=== PATIENT | female | born 1995 | race Caucasian/White ===

== ENCOUNTER → 2019-05-05 08:27 | Outpatient (BNVA) | payer OTHER, SELFPAY | PROVIDERS: Family Provider Nurse Practitioner Family; Visit Provider Nurse Practitioner Women's Health | DX: Z39.2 Encounter for routine postpartum follow-up (principal); Z30.430 Encounter for insertion of intrauterine contraceptive device; O99.02 Anemia complicating childbirth | CPT/HCPCS: 81025; 85027 ==

== ENCOUNTER 2019-06-03 10:24 | Outpatient (CLI) | payer OTHER, SELFPAY ==
--- NOTE | 2019-06-03 | XR_ITS ---
WS: [id number] PROCEDURE: XR chest 2V* [id number] CLINICAL INFORMATION: RT ANTERIOR LOWER RIB PAIN, DECREASED LUNG SOUNDS ON RIGHT COMPARISON: None. FINDINGS: Heart: Normal cardiac silhouette. Lungs: Lungs are clear. No consolidation or pleural fluid. No acute pulmonary infiltrates. Bones: Mild thoracic curve convex left. XR/XR chest 2V* [id number] IMPRESSION: 1. Lungs are well aerated. No acute pulmonary infiltrates. 2. Mild thoracic curve convex left.
== END 2019-06-03 10:25 | disposition home or self-care (01) ==
LOC: RADOUTREAD 10:49
PROVIDERS: Family Provider Nurse Practitioner Family; Visit Provider Nurse Practitioner
DX: Z76.89 Persons encountering health services in other specified circumstances (principal)

== ENCOUNTER → 2019-07-20 13:13 | Outpatient (BNVA) | payer OTHER, SELFPAY | PROVIDERS: Family Provider Nurse Practitioner Family; Visit Provider Obstetrics & Gynecology Female Pelvic Medicine and Reconstructive Surgery | DX: R10.2 Pelvic and perineal pain (principal); Z30.431 Encounter for routine checking of intrauterine contraceptive device; N85.4 Malposition of uterus; N83.201 Unspecified ovarian cyst, right side | CPT/HCPCS: 76830; 84315 ==

== ENCOUNTER → 2020-04-24 14:09 | Outpatient (BNVA) | payer OTHER, SELFPAY | PROVIDERS: Family Provider Nurse Practitioner Family; Visit Provider Obstetrics & Gynecology | DX: Z12.4 Encounter for screening for malignant neoplasm of cervix (principal); Z11.3 Encounter for screening for infections with a predominantly sexual mode of transmission; F32.9 Major depressive disorder, single episode, unspecified | CPT/HCPCS: 86592; 86803; 87340; 87491; 87591; 87806; 88175 ==

== ENCOUNTER → 2021-03-01 11:43 | Outpatient (BNVA) | payer MEDICAID, SELFPAY | PROVIDERS: Family Provider Nurse Practitioner Family; Visit Provider Nurse Practitioner Women's Health | DX: N89.8 Other specified noninflammatory disorders of vagina (principal) | CPT/HCPCS: 87491; 87591; 87661 ==

== ENCOUNTER → 2021-05-07 16:54 | Outpatient (BNVA) | payer OTHER, SELFPAY | PROVIDERS: Family Provider Nurse Practitioner Family; Visit Provider Nurse Practitioner Family | DX: Z20.822 Contact with and (suspected) exposure to COVID-19 (principal) | CPT/HCPCS: 87635 ==

== ENCOUNTER → 2022-05-31 10:05 | Outpatient (BNVA) | payer BC, SELFPAY | PROVIDERS: Family Provider Nurse Practitioner Family; Visit Provider Nurse Practitioner Women's Health | DX: N91.5 Oligomenorrhea, unspecified (principal); Z01.419 Encounter for gynecological examination (general) (routine) without abnormal findings | CPT/HCPCS: 84146; 84443 ==

== ENCOUNTER 2022-07-04 14:12 | Outpatient (CLI) | payer BC, MEDICAID, SELFPAY ==
--- NOTE | 2022-07-04 14:59 | XRR_ITS ---
PROCEDURE INFORMATION: Exam: XR Right Knee Exam date and time: 07/04/2022 3:00 PM Age: 26 years old Clinical indication: Injury or trauma; Other: Playing vb; Swelling (edema); Right; Injury details: History--rt knee pain, PT injured playing volleyball 3 days ago; Additional info: Pain in right knee TECHNIQUE: Imaging protocol: Radiologic exam of the right knee. Views: 3 views. COMPARISON: No relevant prior studies available. FINDINGS: Bones/joints: Osseous structures are intact. Negative for fracture. Joint spaces are preserved. Soft tissues: Normal. XR/XR knee RT 3V* [id number] IMPRESSION: No acute findings.
== END 2022-07-04 14:13 | disposition home or self-care (01) ==
LOC: RAD 14:18
PROVIDERS: PCP Family Medicine; Visit Provider Family Medicine
DX: M25.561 Pain in right knee (principal)
CPT/HCPCS: 73562

== ENCOUNTER 2022-10-07 08:29 | Outpatient (CLI) | payer BC, MEDICAID, SELFPAY ==
--- NOTE | 2022-10-07 08:45 | MR_ITS ---
WS: [id number] MRI RIGHT KNEE HISTORY: pain, injury. COMPARISON: Knee radiograph 07/04/2022 Anterior cruciate ligament: Abnormal signal throughout the ACL. Abnormal course of the ACL with focal tear involving the mid ligament. ACL is more horizontal than typically noted. Complete tear is likel y. Posterior cruciate ligament: Intact. Medial collateral ligament: Intact. Posterior lateral corner structures: Intact. Medial menisci: Intact. Normal signal, size and shape. Lateral meniscus: Intact. Normal signal, size and shape. Extensor mechanism: Distal quadriceps tendon and patellar tendons are intact. Fluid and soft tissue: No significant joint effusion. There is a small amount of subcutaneous edema s urrounding the knee but predominantly anterior. Small amount of fluid in the infrapatellar fat pad. N o Deleon's cyst. Osseous and articular structures: Patellofemoral compartment: Normal. Medial compartment: No significant narrowing of the joint spaces. Very mild superficial fraying along the surface of the cartilage. Lateral compartment: Normal. MR/MR knee RT wo con* [id number] IMPRESSION: 1. Complete tear ACL. 2. No meniscal injury or tear is identified. 3. No joint effusion. 4. Mild soft tissue edema. 5. No marrow edema.
== END 2022-10-07 08:30 | disposition home or self-care (01) ==
PROVIDERS: PCP Family Medicine; Visit Provider Orthopaedic Surgery
DX: S83.511A Sprain of anterior cruciate ligament of right knee, initial encounter (principal); X58.XXXA Exposure to other specified factors, initial encounter; R60.0 Localized edema
CPT/HCPCS: 73721

== ENCOUNTER → 2022-10-09 10:45 | Outpatient (BNVA) | payer BC, MEDICAID, SELFPAY | PROVIDERS: PCP Family Medicine; Visit Provider Family Medicine | DX: Z76.89 Persons encountering health services in other specified circumstances (principal); Z71.3 Dietary counseling and surveillance | CPT/HCPCS: 80053; 80061; 84439; 84443; 85025 ==

== ENCOUNTER → 2022-11-15 10:06 | Outpatient (BNVA) | payer BC, MEDICAID, SELFPAY | PROVIDERS: PCP Family Medicine; Visit Provider Clinical Nurse Specialist Adult Health | DX: Z01.818 Encounter for other preprocedural examination (principal) | CPT/HCPCS: 80048; 81000; 81003; 81025; 85025 ==

== ENCOUNTER 2022-11-22 06:27 | Day surgery (SDC) | payer BC, MEDICAID, SELFPAY ==
[2022-11-21 08:16] VITALS: BMI 40.8
[2022-11-22] VITALS (13 sets, daily range): BP systolic 102–132; BP diastolic 67–96; PULSE 78–109; RESP 16–18; TEMP 36.2–36.3; O2SAT 93–99
--- NOTE | 2022-11-22 | XR_ITS ---
WS: [id number] Right knee, C-arm fluoroscopy views, 11/22/2022 Clinical Data: Right knee arthroscopy Comparison: Right knee, 07/04/2022 Findings: Dr. Ramos performed an ACL repair on the right knee. XR/XR knee RT 1-2V [id number] Impression: ACL repair on the right knee
--- NOTE | 2022-11-22 07:04 | P.HPUD_ITS ---
Surgery/Procedure H&P Update DATE OF PROCEDURE: November 22, 2022 DATE H&P PERFORMED: 11/07/22 CHANGES TO PREVIOUS DOCUMENTATION: None. No change in HPI from last office visit on 11/07/2022. Patient at this point in time MRI has been reviewed she does have a complete ACL tear with no meniscal pathology appreciated. We detailed the ins and outs of the procedure with patient as well as her parents are at bedside. She understands the risk benefits complication alternatives with surgery and through shared decision- making elects to proceed with surgical intervention of a right knee diagnostic and surgical arthroscopy with arthroscopic assisted ACL reconstruction with quadricep tendon autograft. Patient understands agrees with current plan. All questions answered. PREOP DIAGNOSIS: Right knee ACL tear PRIMARY INDICATION FOR PROCEDURE: Right knee ACL tear PLANNED PROCEDURE: Operation Date: 11/22/22 08:10 Proposed Procedures p Right knee diagnostic and surgical arthroscopy with anterior cruciate ligament reconstruction with quadriceps tendon autograft [id number],S83.519A,M25.569?(Right) - Sohail Ramos, DO s ACL Repair Anterior Cruciate Ligament Reconstruction(Right) - Sohail Ramos, DO
[2022-11-22] MEDS: sodium chloride 0.9% 1,000 ML 30 ML IV (07:21)
[2022-11-22] MEDS: acetaminophen 1,000 MG/100 ML PIGGYBACK 400 MG IV (07:22)
[2022-11-22 07:34] LABS: OR HCG Qualitative Urine Negative (Negative)
[2022-11-22] MEDS: ketorolac 30 mg/mL INJ IVP (07:36)
--- NOTE | 2022-11-22 08:44 | P.ANESASSM_ITS ---
Pre-Anesthetic Assessment Height/Weight: Height 1.63 m Weight 107.955 kg Temp Pulse Resp BP Pulse Ox O2 Del Method 97.3 F L 78 18 119/73 97 Room Air 11/22/22 07:08 11/22/22 07:08 11/22/22 07:08 11/22/22 07:08 11/22/22 07:08 11/22/22 07:05 Preop Diagnosis: Right knee ACL tear Operation Date: 11/22/22 08:10 Proposed Procedures p Right knee diagnostic and surgical arthroscopy with anterior cruciate ligament reconstruction with quadriceps tendon autograft [id number],S83.519A,M25.569?(Right) - Sohail Ramos DO s ACL Repair Anterior Cruciate Ligament Reconstruction(Right) - Sohail Ramos DO Last intake: Intake Last Liquid Date 11/21/22 Last Liquid Time 23:30 Last Solid Date 11/21/22 Last Solid Time 20:30 Social No alcohol and No tobacco Exam Normal Cardiopulmonary Exam Airway Submandibular: within normal limits Cervical ROM: within normal limits Mallampati: Class II Neuropsych Depression Anesthetic Plan ASA status: 2 Anesthesia: General and Regional (specify below) (Adductor Canal Block ) Medications/Allergies Home Medications Medication Instructions Recorded Confirmed Last Taken Type escitalopram oxalate 10 mg tablet 10 mg PO DAILY 10/09/22 11/21/22 11/22/22 05:45 History (Lexapro) Allergies Allergy/AdvReac Type Severity Reaction Status Date / Time No Known Allergies Allergy Verified 11/15/22 09:40 Current Medications Generic Name Dose Route Start Last Admin Trade Name Freq PRN Reason Stop Dose Admin Sodium Chloride 1,000 mls @ 30 mls/hr 11/22/22 06:45 11/22/22 07:21 Sodium Chloride 0.9% IV 11/23/22 06:44 30 mls/hr .Q24H MARILIA Administration PFSH Anesthesia Medical History Morbid obesity No pertinent past medical history Denies diabetes, asthma, hypertension, seizures, DVT/PE PCP: None Surgical History H/O section X 3 1--[id number]---zjc transverse delivery performed for arrest of dilation at [address] Dominguez at [facility] [place]. 2--11/20/2016-repeat low transverse delivery by Dr. Obando 3--03/23/2019, repeat low transverse delivery by Dr. Obando and Alberto at [facility] [place] double layer closure History of appendectomy (~11/21/13) Laparoscopic procedure performed by Dr. Lane at [facility] in [place], [place] History of tonsillectomy At age 5 Family History Grandmother Diabetes Maternal and paternal Mother Thyroid condition Denies family history of Colon cancer Ovarian cancer Clotting disorder Heart disease Hyperlipidemia Chronic kidney disease (CKD) Breast cancer Anesthesia complication Bleeding disorder Cancer Hypertension Uterine cancer Stroke Social History Smoking and tobacco status: never smoked Second hand smoke exposure: No Smoking risk assessment/counseling performed?: No Alcohol intake: never Desire information about alcohol rehabilitation?: No Counseling given: No Substance/Drug Use: never Desire information about substance/drug rehabilitation?: No Counseling given: No Adopted: No Caregiver/support person: No Lives independently: Yes Household members: spouse Housing: House Marital status: Life Partner Number of children: 3 service: No Current occupational status: employed Current occupational exposures/hazards: No Pets and animals: No Sexually active: No Do you think of yourself as: Straight/Heterosexual Current gender identity: Female Female Reproductive History Date of last menstrual period: 10/21/22 Spontaneous abortions: No Data Anesthesia Cardiac Studies: No Data to Display
[2022-11-22] MEDS: ceFAZolin 2,000 MG in sodium chloride 0.9% (plus) 50 ML 100 MG IV (08:57)
--- NOTE | 2022-11-22 09:43 | SUR.OPER ---
family updated of surgical status. hd
--- NOTE | 2022-11-22 11:33 | SUR.OPER ---
family updated of surgical status. hd
[2022-11-22] MEDS: lidocaine-epi 2% 20 mL INJ INJECTION (11:44)
[2022-11-22] MEDS: fentaNYL 50 mcg/mL INJ 2mL IVP ×2 (12:27→12:30)
--- NOTE | 2022-11-22 12:33 | PM.OP2 ---
Brief Operative Note Date of procedure: 11/22/22 Pre-op diagnosis: Right knee complete ACL tear Post-op diagnosis: same Procedure Done: 1. Right knee diagnostic and surgical arthroscopy with limited synovectomy 2. Right knee diagnostic and surgical arthroscopy with arthroscopic assisted anterior cruciate ligament reconstruction 3. Right knee quadricep tendon autograft Surgeon: Sohail Ramos Estimated blood loss (mL): 20 Complications: None Post-op Plan: Patient taken to PACU in stable condition recovering well. Patient will receive appropriate discharge instructions as well as pain medication and DVT prophylaxis. She will be allowed partial weightbearing 30 to 50% for the first 2 weeks. Unlocked with full knee range of motion as tolerated we will get her started up in therapy next week. Patient understands agrees with current plan. Questions answered. Condition: stable Disposition: same day Coding Level of Care Code Acute Code for George Maldonado
--- NOTE | 2022-11-22 12:35 | PM.PACU ---
PACU note Narrative: Patient taken to PACU in stable condition recovering well pain controlled. Brace on and in place locked in full extension at this time. She is able to wiggle her toes plantarflex and dorsiflex ankle sensations intact light touch distally. DP pulse PT pulse 2+. Foot warm well-perfused brisk capillary refill less than 2 seconds compartments are soft compressible. Exam: awake Disposition: discharged
--- NOTE | 2022-11-22 12:36 | P.OP_ITS ---
Operative Report Date of procedure: November 22, 2022 Pre-op diagnosis: Preop Diagnosis Right knee ACL tear Procedure: Post-op diagnosis: Same Procedure done: Procedure Done: 1. Right knee diagnostic and surgical arthroscopy with limited synovectomy 2. Right knee diagnostic and surgical arthroscopy with arthroscopic assisted anterior cruciate ligament reconstruction 3. Right knee quadricep tendon autograft Implants: Arthrex quad tendon autograft set with internal brace 4.75 swivel lock for internal brace Surgeon: Sohail Ramos Estimated blood loss (mL): 20 Tourniquet time 110min IV fluids: See anesthesia record Complications: None Findings: See operative report narrative Condition: stable Disposition: same day Brief History: Patient is a pleasant 27-year-old female who is been seen and worked up in the outpatient setting after sustaining a injury to right knee.? Patient had MRI findings consistent with a right complete ACL tear. Given her young age and her continual feelings of instability we talked about her treatment options and at this point in time through shared decision making she elects to proceed with right knee diagnostic and surgical arthroscopy with arthroscopic assisted ACL reconstruction utilizing a quad tendon autograft.? We reviewed the MRI images.? Detailed out the ins and outs of the procedure.? They understand the risk benefits complications alternatives of treatment options and agreed to proceed with surgery.? The risks include but are not limited to make it better, make it worse, blood clot, infection, arthrofibrosis and stiffness of the knee, deep creased function of the knee, rerupture, early arthritis and with these understandings patient agree to proceed with surgical intervention.? All questions answered.? Consent was obtained in the office. Procedure: Patient was seen evaluated in the preoperative holding area.? The consent was reviewed with the patient as well as parents.? The correct extremity was then marked.? Patient was seen evaluate by the anesthesia and preoperative team.? Once cleared by anesthesia, patient was then taken to the operative suite patient was then placed onto the OR table and underwent anesthesia per the anesthesia department.? All bony prominences were well-padded patient was appropriately secured to the bed.? The left lower extremity was then secured to an armboard.? The bottom of the table was then dropped.? Patient had a nonsterile tourniquet applied to the right lower extremity.? A arthroscopic post was then placed to the lateral aspect of the right knee.? Once completely secured to the bed patient's right knee was then examined under anesthesia.? Patient was found to have a positive Ray's as well as a positive pivot shift.? This point time the right knee was then prepped and draped in standard orthopedic fashion.? Final timeout performed.? Patient received appropriate preoperative antibiotics. Esmarch was used to exsanguinate the right lower extremity.? Tourniquet was insufflated to 250 mmHg.? Initially started with Standard 2 incision vertical arthroscopy portals were made.? Initially starting laterally introduced the trocar and perform a diagnostic and surgical arthroscopy visualizing the suprapatellar pouch which was free of loose bodies.? We evacuated a mild hemarthrosis.? We then visualized the patellofemoral joint which was pristine.? Moved into the medial lateral gutters which were pristine with no evidence of loose bodies.? We then evaluated the medial compartment which was pristine with no chondral injury or injury to the meniscus.? I utilized a spinal needle outside in technique to establish my medial portal.? This was then established as well as shaver used to complete a limited synovectomy to allow for easy graft passage and shuttling a suture.? This was performed of the medial infrapatellar as well as lateral compartments.? Next I utilized a probe to evaluate the medial compartment the root of the medial meniscus was intact.? No meniscal tear found on the medial compartment was pristine. Moved into the intercondylar notch and significant rupture of the ACL was noted.? I introduced the arthroscopic shaver to debride the ACL back to the footprint of the femur as well as of the tibia.? This point time moved into the lateral compartment to evaluate the lateral meniscus. Patient's articular cartilage laterally was pristine with no defect as well as her meniscus had no evidence of meniscal tear with a stable meniscal root. All instruments were withdrawn I finished my diagnostic and surgical arthroscopy and confirmed ACL rupture and elected to proceed with quad tendon harvest. I started with the quad tendon autograft.? A standard longitudinal incision was made directly over the quad tendon.? Sharp scalpel excision through skin and subcutaneous tissue.? I utilized a scalpel to mobilize fat off of the quad tendon and had direct visualization at the distal extent of the quad tendon with plan for the beginning of my harvest.? Plan was for all soft tissue with no bony plug.? I opened up the Arthrex quad pro quadriceps tendon graft harvest.? I plan to utilize a partial thickness quad harvest with care to not violate the joint capsule.? At this point time I then made a small tapered and incision distally into the quad tendon to create my starting point.? At this point I then used an Arthrex fiber loop suture to tack the distal end of my graft.? This was then shuttled through the quad pro graft harvest system and I then subsequently harvested given the patient's shorter stature harvested a 62 mm overall graft length.? This was harvested successfully with partial thickness.? The wound bed was then thoroughly irrigated and the edges were then reapproximated with interrupted 0 Vicryl suture.? The subcutaneous tissue was closed with 2-0 Vicryl suture and the skin was closed with running Monocryl suture.? Next the graft was taken to the back table measured a 62 mm graft overall length.? I then utilized the Arthrex quadriceps autograft kit was utilized to graft lengths with a tight rope suspensory technique and the femur with plan to place an internal brace as well.? At this point I prepared my graft for both the femur and tibial ends with a graft plug length of 20 mm on the femur and 20 mm on the tibia.? The graft size was then measured to be at 9 mm for both the tibia and the femur. Once the graft was completely prepped in the internal brace was then placed the graft then was placed under appropriate tension on the back table and roughly 20 N of force the graft was wrapped in a damp lap and we proceeded with our arthroscopy. At this point I moved into preparation for femoral tunnels.? I then introduced arthroscopic shaver to debride the femoral origin of the ACL I utilized electrocautery to maintain access in the retrocruciate space.? This was free of loose bodies.? I then performed a notchplasty with a bur just to identify appropriate landmarks and easier shuttle passing.? This would also provide excellent stimulation and healing for the ACL reconstruction.? This point time it utilize a thermal wand to cynthia my planned anatomic femoral tunnel. At this point time introduced the femoral tunnel guide which was set to appropriate angle and then subsequently made a small incision tamped our guide directly down to bone laterally and then the drill was then inserted into the intercondylar notch at my planned femoral tunnel spot.? I then utilized the reverse reamer drill bit to reverse ream a 9 mm tunnel with roughly 30 mm to allow for back tensioning if needed later.? This completed my femoral tunnel.? The femoral tunnel was then evacuated of its bony debris utilizing arthroscopic shaver.? I then introduced a FiberWire as my shuttling stitch for the femur and this was clamped utilizing a hemostat.? Next I then introduced my tibial tunnel guide which was set to appropriate length this was centered directly over the anatomic tibial footprint.? Once I like my position I then placed my guide on the skin plan my incision made a small incision with plan for later IV placement and the tibia.? Drill sleeve was then tapped into place the drill was then advanced into the anatomic footprint of the tibia the flip cutter was then placed at 9mm for the tunnel with and a 30 mm drill tunnel was then placed to allow for appropriate back tensioning as needed.? Once this was done I then introduced the arthroscopic shaver to debride all bony debris throughout the tibial tunnel to prevent from any chances of cyclops lesions.? Once this was done I then shuttled my fiber wire suture through the tibial tunnel and pulled this out of the medial arthroscopic portal.? I then grabbed the femoral shuttling suture and pulled this out the anterior medial portal as well.? This point time we are ready to pass our graft.? I then appropriately marked our drill tunnel length on her suture and then shut tled our quad autograft femoral side utilizing my femoral shuttling suture the button was then flipped and I utilized C arm to confirm this was directly onto bone.? I did make a small incision distally to directly visualize this was on bone.? Patient did have some bit of periosteum but this did not have any IT band or soft tissue keeping this from directly being on the bone.? Was directly visualized through my incision.? Once this was flipped and appropriately tensioned with the knee in flexion I then utilized the white tensioning sutures to bring the 20 mm graft plug and appropriate position once this was appropriately secured this was then left alone and I subsequently moved to shuttling the tibia shuttling sutures for my tibial portion of my graft.? This was then shuttled through and then pulled into the tibial tunnel under direct arthroscopic visualization.? Next I then placed the knee into full extension I then inserted the tibial button which the suture was then placed into as well as shuttling my internal brace suture through.? First I appropriately tensioned my tibial graft plug secured this down to bone and cycled multiple times of tension.? Once preliminary fixed I then range the knee over 30 times performed a Ray and anterior drawer to get creep out of the graft system.? Once this was done I then went back up to the femur with the knee in flexion repeat tensioned so this bottomed out as well as place the knee back into extension and repeat tension to my tibial button and graft until this reached excellent tension.? At this point time I then took my internal brace sutures which were then loaded onto a 4.75 swivel lock.? I then identified the medial face of the tibia in a perpendicular fashion utilize their stop drill guide for the swivel lock and then appropriately tapped and impacted my 4.75 swivel lock internal brace with excellent fixation while the knee was held in extension.? Extra suture was then cut.? At this point time I then tied my tensioning sutures of the tibia over my tibial button and then the sutures were cut.? This completed my ACL reconstruction this was then taken through a Ray's which had a significant firm endpoint with no evidence of laxity he had no evidence of a pivot shift.? This point in final images were then taken arthroscopically.? All fluid was suctioned out of the knee.? Tourniquet was deflated.? Excess sutures on the femur side were then removed. Incisions were then closed with 0 Vicryl 2-0 Vicryl and a running Monocryl suture.? I then placed Steri-Strips over the incisions.? Dressings were then applied of 4 x 4's ABD soft roll and an Austen wrap.? Patient was then secured and appropriately fitted for ACL brace locked in extension prior to waking up.? Patient was then transported to the hospital table he was waken up from anesthesia and taken to PACU in stable condition. Disposition: Patient recover in PACU in stable condition.? Patient and family will be given appropriate discharge instructions as well as DVT prophylaxis pain medication postoperatively.? We will get patient started on ACL reconstruction protocol.? We will work [id number] with therapy department.? Patient as well as family understand and agree with current plan.? All questions answered at this time.? We will see patient in office in 2 weeks for follow-up.? We will have him be unlocked for full range of motion good in therapy this week we will have her be partial weightbearing for the first 2 weeks with plan to progress her afterwards per protocol. Patient understands agrees with current plan. Questions answered.
[2022-11-22] MEDS: ondansetron 2 mg/ML SDV 2 mL 4 MG IVP (13:07)
[2022-11-22] MEDS: HYDROcodone-acetaminophen 5-325 mg Tablet 1 TAB PO (13:10)
--- NOTE | 2022-11-22 17:20 | ANE.PACU2 ---
Inpatient post-anesthesia follow up: Vital signs: Temperature 97.1 F Pulse Rate 89 Respiratory Rate 18 Blood Pressure 128/83 Pulse Oximetry 97 Oxygen Delivery Me thod Room Air Oxygen Flow Rate 8 Fraction of Inspir ed Oxygen Hydration adequate: Yes Nausea and vomiting: No Pain level: 3 Mental status: Baseline
== END 2022-11-22 13:54 | disposition home or self-care (01) ==
PROVIDERS: PCP Family Medicine; Visit Provider Student in an Organized Health Care Education/Training Program
PROC: (CPT 29870; principal; 2022-11-22 08:10)
PROC: (CPT 27407; 2022-11-22 08:10)
DX: S83.511A Sprain of anterior cruciate ligament of right knee, initial encounter (principal); X58.XXXA Exposure to other specified factors, initial encounter; F32.A Depression, unspecified
CPT/HCPCS: 29888; 36415; 73560; 76000; 81025; 84703; 86850; 86900; 86920; C1713; J0131; J0690; J1100; J1170; J1885; J2405; J2704; J2795; J3010; J7030

== ENCOUNTER 2022-12-20 06:00 | Outpatient (RCR) | payer BC, MEDICAID, SELFPAY | END 2023-01-18 23:59 | disposition home or self-care (01) | LOC: SPT 06:00 | PROVIDERS: PCP Family Medicine; Visit Provider Student in an Organized Health Care Education/Training Program | DX: Z47.89 Encounter for other orthopedic aftercare (principal) | CPT/HCPCS: 97110 ==

== ENCOUNTER → 2022-12-31 13:14 | Outpatient (BNVA) | payer BC, MEDICAID, SELFPAY | PROVIDERS: PCP Family Medicine; Visit Provider Student in an Organized Health Care Education/Training Program | DX: S83.511A Sprain of anterior cruciate ligament of right knee, initial encounter; X58.XXXA Exposure to other specified factors, initial encounter | CPT/HCPCS: 73560; 73565 ==

== ENCOUNTER 2023-01-19 06:00 | Outpatient (RCR) | payer BC, MEDICAID, SELFPAY | END 2023-02-18 23:59 | disposition home or self-care (01) | LOC: SPT 06:00 | PROVIDERS: PCP Family Medicine; Visit Provider Student in an Organized Health Care Education/Training Program | DX: Z98.890 Other specified postprocedural states (principal) | CPT/HCPCS: 97110 ==

== ENCOUNTER 2023-02-19 06:00 | Outpatient (RCR) | payer BC, MEDICAID, SELFPAY | END 2023-02-26 23:59 | disposition home or self-care (01) | LOC: SPT 06:00 | PROVIDERS: PCP Family Medicine; Visit Provider Student in an Organized Health Care Education/Training Program | DX: Z98.890 Other specified postprocedural states (principal) | CPT/HCPCS: 97110 ==

== ENCOUNTER → 2023-06-03 14:45 | Outpatient (BNVA) | payer BC, MEDICAID, SELFPAY | PROVIDERS: PCP Family Medicine; Visit Provider Nurse Practitioner Women's Health | DX: Z01.419 Encounter for gynecological examination (general) (routine) without abnormal findings (principal) | CPT/HCPCS: 88175 ==

== ENCOUNTER 2023-08-27 10:10 | Outpatient (CLI) | payer BC, SELFPAY ==
--- NOTE | 2023-08-27 10:15 | XRR_ITS ---
PROCEDURE INFORMATION: Exam: XR Left Ankle Exam date and time: 08/27/2023 10:23 AM Age: 27 years old Clinical indication: Injury or trauma; Other: Rolled ankle; Blunt trauma; Injury date: 08/26/23; Patient HX: Rolled left ankle playing volleyball; Additional info: L ankle pain TECHNIQUE: Imaging protocol: Radiologic exam of the left ankle. Views: 3 or more views. COMPARISON: No relevant prior studies available. FINDINGS: Bones/joints: No acute fracture or dislocation. Mineralization is normal. Joint spacing and alignment are maintained. Tiny Achilles insertional enthesophyte. Soft tissues: Soft tissue swelling. XR/XR ankle LT min 3V* [id number] IMPRESSION: Soft tissue swelling without acute fracture or dislocation.
== END 2023-08-27 10:11 | disposition home or self-care (01) ==
LOC: RAD 10:11
PROVIDERS: PCP Family Medicine; Visit Provider Family Medicine
DX: M25.572 Pain in left ankle and joints of left foot (principal); M79.89 Other specified soft tissue disorders
CPT/HCPCS: 73610

== ENCOUNTER 2023-09-01 14:19 | Emergency (ER) | payer BC, MEDICAID, SELFPAY ==
--- NOTE | 2023-09-01 14:21 | XRR_ITS ---
PROCEDURE INFORMATION: Exam: XR Left Ankle Exam date and time: 09/01/2023 2:30 PM Age: 27 years old Clinical indication: Injury or trauma; Other: Hurt ankle; Blunt trauma; Left; Injury date: 1 week ago TECHNIQUE: Imaging protocol: Radiologic exam of the left ankle. Views: 3 or more views. COMPARISON: CR XR ankle LT min 3V* [id number] 08/27/2023 10:23 AM FINDINGS: Bones/joints: No acute fracture or dislocation. Tiny Achilles insertional enthesophyte. Soft tissues: Soft tissue swelling. XR/XR ankle LT min 3V* [id number] IMPRESSION: Soft tissue swelling without acute fracture or dislocation.
[2023-09-01 14:46] VITALS: BP 135/83; PULSE 83; RESP 14; TEMP 36.6; O2SAT 100
--- NOTE | 2023-09-01 15:27 | W.ED.LOWEXIN ---
HPI - Extremity Injury (Lower) General: Chief Complaint: Extremity Injury, Lower Stated Complaint: left ankle pain Time Seen by Provider: 09/01/23 15:23 Source: patient Mode of arrival: wheelchair Limitations: no limitations History of Present Illness: Patient is a 27-year-old female presents to ED today for evaluation of a left ankle injury. Patient states approximately 5 to 6 days ago she rolled the ankle. Patient states she saw her PCP who ordered outpatient x-rays. She states she was called and told these were normal. She states she has been wearing an OTILIO wrap as well as icing and elevating it but has otherwise been ambulatory on the extremity. Patient states while at work today she feels like she tweaked her ankle and immediately began noticing reswelling to the lateral aspect. Patient states she is no longer able to bear weight. MD complaint: ankle injury Onset (ago): day(s) Injury: Left: ankle Type of Injury: inversion Place: home Severity: severe Relieving factors: immobilization Exacerbating factors: weight bearing, movement and palpation Context: walking Associated symptoms: Reports inability to bear weight Other symptoms: none Review of Systems Musc: Reports: joint pain (L ankle), joint swelling (L ankle) and limited range of motion (L ankle) Neuro: Reports: difficulty walking (secondary to L ankle pain); Denies: numbness in extremities or sensory changes PFSH ED PFSH: Medical History Psychiatric care ACL tear Morbid obesity No pertinent past medical history Denies diabetes, asthma, hypertension, seizures, DVT/PE PCP: None Surgical History History of repair of ACL (~11/2022) History of appendectomy (~11/21/13) Laparoscopic procedure performed by Dr. Lane at [facility] in [place], [place] History of tonsillectomy At age 5 H/O section X 3 1--[id number]---jpj transverse delivery performed for arrest of dilation at [address] Dominguez at [facility] – [place]. 2--11/20/2016-repeat low transverse delivery by Dr. Obando 3--03/23/2019, repeat low transverse delivery by Dr. Obando and Alberto at [facility] [place] double layer closure Family History Grandmother Diabetes Maternal and paternal Mother Thyroid disease Denies family history of Colon cancer Ovarian cancer Clotting disorder Heart disease Hyperlipidemia Chronic kidney disease (CKD) Breast cancer Anesthesia complication Bleeding disorder Cancer Hypertension Uterine cancer Stroke Social History Smoking and tobacco/nicotine status: never used tobacco/nicotine Second hand smoke exposure: No Alcohol intake: never Substance/Drug Use: never Adopted: No Caregiver/support person: No Lives independently: Yes Housing: House Marital status: Life Partner Number of children: 3 service: No Current occupational exposures/hazards: No Pets and animals: No Sexually active: No Do you think of yourself as: Straight/Heterosexual Female Reproductive History: Spontaneous abortions: No Physical Exam Const: COMMON NORMALS: no acute distress, no limitations and well nourished Extremity: COMMON NORMALS: capillary refill normal and no calf tenderness GENERAL: Yes normal exam except as noted LEFT LOWER EXTREMITY: Yes ankle joint (TTP/edema lateral malleolus) Left ankle: Yes inspection (edema surrounding lateral ankle), Yes ROM (limited secondary to pain) and Yes neurovascular exam (normal) Neuro: COMMON NORMALS: moves all extremities, no focal motor deficits and no sensory deficits noted Course Vital Signs: Vital signs: Vital Signs Temperature 97.9 F 09/01/23 14:46 Pulse Rate 83 09/01/23 14:46 Respiratory Rate 14 09/01/23 14:46 Blood Pressure 135/83 09/01/23 14:46 Pulse Oximetry 100 09/01/23 14:46 Oxygen Delivery Me thod Room Air 09/01/23 14:46 MDM - Extremity Injury (Lower) Medical Decision Making XR negative for bony injury here. Will have her continue the OTILIO wrap. Will get her set up with crutches with instructions for nonweightbearing over the next week and then weightbearing as tolerated following this. Continue RICE therapy. Recommend follow-up with primary care in 2 weeks if symptoms do not seem to be improving. Differential Diagnosis Likely ankle sprain and strain Medical Records I reviewed the patient's medical records. XR interpretation done by ED provider, pending radiology final review Discharge Plan Discharge Patient Disposition: Home Clinical Impression: Left ankle sprain Qualifiers: Encounter type: initial encounter Involved ligament of ankle: unspecified ligament Qualified Code(s): S93.402A - Sprain of unspecified ligament of left ankle, initial encounter Condition: Stable Prescriptions: No Action trazodone 50 mg tablet 100 mg PO .HS PRN (Reason: insomnia) Qty: 60 2RF escitalopram oxalate [Lexapro] 20 mg tablet 20 mg PO DAILY Qty: 30 2RF buspirone 10 mg tablet 10 mg PO BID Qty: 60 2RF Discharge Orders: Discharge ED (Routine); Ordered 09/01/23 Ordered By: Heidi Dial Referrals: Argenis Francis DO [Primary Care Provider] - Patient Instructions: Ankle Sprain (DC), RICE Therapy Activity Restrictions/Additional Instructions: As we discussed I would like you wear your OTILIO wrap at all times. Crutches have been provided for you today and I would like you no weightbearing over the next week and then weightbearing as tolerated following this. Please continue to ice and elevate the extremity. Please follow-up with your primary care provider in 2 weeks of symptoms do not seem to be improving. Stand Alone Forms: Work/School Release Coding Level of Care Code ED Lot Boss for George Maldonado
== END 2023-09-01 16:03 | disposition home or self-care (01) ==
PROVIDERS: Emergency Provider Physician Assistant; PCP Family Medicine
DX: S93.402A Sprain of unspecified ligament of left ankle, initial encounter (principal); X50.1XXA Overexertion from prolonged static or awkward postures, initial encounter; Y92.009 Unspecified place in unspecified non-institutional (private) residence as the place of occurrence of the external cause
CPT/HCPCS: 73610; 99283; E0114

== ENCOUNTER 2023-11-04 14:04 | Outpatient (CLI) | payer BC, MEDICAID, SELFPAY | END 2023-11-04 14:05 | disposition home or self-care (01) | LOC: SLEEP 14:04 | PROVIDERS: PCP Family Medicine; Visit Provider Family Medicine | DX: G47.00 Insomnia, unspecified (principal); R06.83 Snoring; R53.83 Other fatigue | CPT/HCPCS: G0399 ==

== ENCOUNTER → 2023-11-07 09:00 | Outpatient (BNVA) | payer BC, MEDICAID, SELFPAY | PROVIDERS: PCP Family Medicine; Visit Provider Podiatrist Foot & Ankle Surgery | DX: S93.402A Sprain of unspecified ligament of left ankle, initial encounter; X50.1XXA Overexertion from prolonged static or awkward postures, initial encounter; Y93.68 Activity, volleyball (beach) (court) | CPT/HCPCS: 73610 ==

== ENCOUNTER 2023-12-17 15:03 | Outpatient (CLI) | payer BC, MEDICAID, SELFPAY ==
--- NOTE | 2023-12-17 15:15 | MR_ITS ---
WS: [id number] MRI LEFT ANKLE WITHOUT CONTRAST. COMPARISON: 11/07/2023 radiograph Multiplanar, multisequence imaging is performed without contrast. Small amount of marrow edema in the medial malleolus. There is a small amount of increased signal in the medial talus. Subtalar cystic changes in the calcaneus. There is a small joint effusion at the an kle. Normal Achilles tendon. Peroneus tendons, posterior tibialis, flexor hallucis and flexor digitorum lo ngus tendons are normal. Anterior tibialis tendon and the extensor tendons are normal. Thickening and loss of the normal fibers involving a portion of the deltoid ligament. Suspect there i s a partial tear versus sprain. There is adjacent soft tissue edema. The spring ligament normal. No w idening of the interosseous membrane. The anterior talofibular ligament is not identified. There is a fluid gap in the expected location of the ligament. There is also a tiny loose body which may be a f ragment of the ATFL or osseous fragment. The posterior talofibular ligament is normal. MR/MR ankle LT wo con* [id number] IMPRESSION: 1. Complete tear of the anterior talofibular ligament. There is a fluid gap. T here is a small associated intra-articular loose body or the stump of the ligam ent is noted within the fluid. 2. Partial tear or mild sprain of the deltoid ligament. 3. Small amount of marrow edema medial malleolus and medial talus. 4. No tendon tear identified.
== END 2023-12-17 15:04 | disposition home or self-care (01) ==
LOC: RAD 15:03
PROVIDERS: PCP Family Medicine; Visit Provider Podiatrist Foot & Ankle Surgery
DX: M84.373A Stress fracture, unspecified ankle, initial encounter for fracture (principal); M66.172 Rupture of synovium, left ankle
CPT/HCPCS: 73721

== ENCOUNTER 2024-03-29 06:30 | Outpatient (CLI) | payer BC, MEDICAID, SELFPAY ==
--- NOTE | 2024-03-29 06:32 | US_ITS ---
WS: [id number] RENAL ULTRASOUND URINARY BLADDER ULTRASOUND HISTORY: Incomplete bladder emptying COMPARISON: None available. TECHNIQUE: 2-D and color Doppler imaging of the kidney submitted. Right kidney: 9.0 cm x 5.1 cm x 5.1 cm. Normal echogenicity with no hydronephrosis or mass. Left kidney: 10.0 cm x 4.5 cm x 5.2 cm. Normal echogenicity with no hydronephrosis or mass. Aorta: Normal. Urinary Bladder: Normal distention. No intraluminal filling defect. Prevoid volume: 107 mL. Post void volume: Not measurable. US/US renal BI with PV bladder IMPRESSION: Normal renal ultrasound. Normal urinary bladder ultrasound. No post void residual.
== END 2024-03-29 06:31 | disposition home or self-care (01) ==
PROVIDERS: PCP Family Medicine; Visit Provider Family Medicine
DX: R39.14 Feeling of incomplete bladder emptying (principal)
CPT/HCPCS: 76770; 76857

== ENCOUNTER 2024-11-09 15:25 | Outpatient (CLI) | payer BC, MEDICAID, SELFPAY ==
--- NOTE | 2024-11-09 15:38 | XRR_ITS ---
PROCEDURE INFORMATION: Exam: XR Left Ankle Exam date and time: 11/09/2024 3:42 PM Age: 29 years old Clinical indication: Pain; Ankle; Left; Additional info: Left ankle pain TECHNIQUE: Imaging protocol: Radiologic exam of the left ankle. Views: 3 or more views. COMPARISON: 1. MR ankle LT wo con* [id number] 12/17/2023 3:16 PM 2. CR XR ankle LT min 3V* [id number] 11/07/2023 9:09 AM FINDINGS: Bones/joints: No acute fracture or malalignment. The mortise is normally aligned. Minimal bony spurring along the anterior distal margin of the tibia. Minimal bony spurring along the inferior aspect of the medial and lateral gutter of the ankle joint. No bony erosion or destruction. No large joint effusion. 4 mm calcification along the posterior aspect of the subtalar joint, only seen on the lateral view. This is somewhat nonspecific and more likely corresponds to bony spurring from mild arthritic change. Very small enthesophyte at the distal insertion of the Achilles tendon. No plantar calcaneal spur. Soft tissues: Mild soft tissue swelling surrounding the ankle, greater medially. XR/XR ankle LT min 3V* [id number] IMPRESSION: 1. No acute fracture or malalignment. 2. Very mild arthritic changes are present at the ankle joint as described. 3. Mild soft tissue swelling surrounding the ankle, greater medially.
== END 2024-11-09 15:26 | disposition home or self-care (01) ==
LOC: RAD 15:29
PROVIDERS: PCP Family Medicine; Visit Provider Family Medicine
DX: M25.572 Pain in left ankle and joints of left foot (principal); M25.772 Osteophyte, left ankle
CPT/HCPCS: 73610